=== PATIENT | male | born 1955 | race Caucasian/White ===

== ENCOUNTER → 2024-09-21 | Outpatient (CLI) | payer MEDICARE, OTHER ==
[2024-09-21 15:09] LABS: African American GFR (CKD) 76 (>60 ml/min/1.73 sqM); Blood Urea Nitrogen 38 mg/dL (9-20); Non-African American GFR(CKD) 65 (>60 ml/min/1.73 sqM)
--- NOTE | 2024-09-21 16:54 | CT ---
EXAMINATION TYPE: CT abdomen pelvis w con CT DLP: 1489 mGycm, Automated exposure control for dose reduction was used. DATE OF EXAM: 09/21/2024 4:27 PM COMPARISON: None CLINICAL INDICATION: Male, 69 years old with history of C67.9 Bladder cancer; Hematuria x 10 months TECHNIQUE: Axial CT abdomen pelvis w con;Sagittal and coronal reformats were created on a separate w orkstation. Contrast used:80 mL of Isovue 370 with IV Contrast, (none if empty) Oral contrast used: with Oral Contrast (none if empty) FINDINGS: LOWER CHEST: Unremarkable ABDOMEN LIVER: Diffusely hypoattenuating parenchyma. GALLBLADDER AND BILE DUCTS: Gallstone in the gallbladder lumen. PANCREAS: Unremarkable. SPLEEN: Unremarkable. ADRENAL GLANDS: Unremarkable. KIDNEYS AND URETERS: No evidence of hydronephrosis or renal calculus. The ureters are unremarkable. Left renal cyst. PELVIS BLADDER: Right bladder wall exophytic mass measuring 52 x 35 mm. REPRODUCTIVE: Prostate is enlarged in size measuring 4.8 cm in transverse dimension. ABDOMEN & PELVIS STOMACH AND BOWEL: No evidence of bowel obstruction. Appendix is normal. PERITONEUM/RETROPERITONEUM: No evidence of pneumoperitoneum or free fluid. VASCULATURE: No evidence of aortic aneurysm. MUSCULOSKELETAL: No acute osseous abnormalities LYMPH NODES: No gross evidence for lymphadenopathy. No enlarged lymph nodes by CT criteria.e SOFT TISSUE/ABDOMINAL WALL: Bilateral fat-containing hernias. IMPRESSION: 1. Right bladder wall exophytic mass measuring 52 x 35 mm compatible with malignancy. No greater milan n 1.0 cm in short axis lymph nodes identified. Urology consultation recommended. Hepatic steatosis. 2. Cholelithiasis. 3. Bilateral fat-containing inguinal hernias. [facility] [place], , 09/21/2024 4:52 PM
== END | disposition home or self-care (01) ==
LOC: RADCTMAIN 14:11
PROVIDERS: ATTEND Urology
CPT/HCPCS: 36415; 74177; 82565; 84520